=== PATIENT | male | born 1995 ===

== ENCOUNTER 2020-10-18 20:14 | Emergency (ER) | payer OTHER, SELFPAY ==
[2020-10-18 20:21] VITALS: BP 131/70; PULSE 75; RESP 16; TEMP 37.1; O2SAT 99; BMI 25.8
--- NOTE | 2020-10-18 20:49 | ED_ITS ---
HPI - Male Genitourinary General Chief complaint: Urogenital-Male Stated complaint: Personal Time Seen by Provider: 10/18/20 20:38 Source: patient Mode of arrival: ambulatory Limitations: no limitations History of Present Illness HPI Narrative: Patient comes emergency room complaining of dysuria for 2 weeks and penile discharge. Patient states that his girlfriend has similar symptoms and is here to be treated as well. Patient denies fever, no flank pain, no abdominal pain, no testicular pain. Related Data Allergies Allergy/AdvReac Type Severity Reaction Status Date / Time No Known Allergies Allergy Verified 10/18/20 20:26 Review of Systems Review of Systems: Constitutional : No Weight loss, No Fever, No Chills, No Night Sweats, No Fatigue, No Malaise ENT/Mouth : No Hearing loss, No Ear Pain, No Nasal Congestion, No Sinus Pain, No Hoarseness, No sore throat, No Rhinorrhea, No Swallowing Difficulty Eyes: No Eye Pain, No Swelling, No Redness, No Foreign Body, No Discharge, No Vision Changes Cardiovascular : No Chest Pain, No SOB, No Dyspnea on Exertion, No Orthopnea, No Edema, No Palpitations Respiratory : No Cough, No Sputum, No Wheezing, No Smoke Exposure, No Dyspnea Gastrointestinal : No Nausea, No Vomiting, No Diarrhea, No Constipation, No a bdominal Pain, No Hematochezia, No Melena Genitourinary : Complaining of dysuria, no hematuria, penile discharge Musculoskeletal : No joint pain, No Myalgias, No Joint Swelling Skin : No Skin Lesions, No rash Neuro : No Weakness, No Numbness, No Paresthesias, No Loss of Consciousness, No Dizziness, No Headache Psych : No Anxiety/Panic, No Depression, No SI/HI/AH/VH, No Social Issues, Heme/Lymph: No Bruising, No Bleeding,No Lymphadenopathy Endocrine : No Polyuria, No Polydipsia, No Temperature Intolerance PMFSH Past Medical History Medical History No known health problems Social History Social History Advance Directives: No Advance Directives Information Provided: No Physical Exam Vital Signs: Vital Signs: Last Vital Signs Temp 98.7 F 10/18/20 20:21 Pulse 75 10/18/20 20:21 Resp 16 10/18/20 20:21 BP 131/70 10/18/20 20:21 Pulse Ox 99 10/18/20 20:21 Body Mass Index 25.8 Appearance: Alert. Oriented X3. No acute distress. Eyes: Pupils equal, round and reactive to light. ENT: Pharynx normal. Neck: Normal inspection. Neck supple. No lymph nodes noted. No crepitus CVS: Normal heart rate and rhythm. Pulses normal. Normal S1 and S2 Respiratory: No respiratory distress. Breath sounds normal. No Wheezing. No rales Abdomen: Soft and nontender. No rigidity. No distention. good BS x4 : declined Skin: Skin warm and dry. Normal skin color. Normal skin turgor. Extremities: No lower extremity edema. No lower extremity edema. No Lacer ations. No Rash Neuro: Oriented X 3. No motor deficit. No sensory deficit. Moving all extermities. No slurred speech. Course Course Course Narrative: Patient urine was obtained, GC chlamydia testing pending and urinalysis. Id iscussed with the patient that he will be treated empirically for STDs. Patient agrees with plan Discharge Plan Discharge Clinical Impression: Concern about STD in male without diagnosis Patient Disposition: Home, Self-Care Instructions: Sexually Transmitted Diseases (ED) Additional Instructions: Please follow-up with your primary care physician tomorrow. If you have any worsening or new symptoms, please return to the emergency room or call 911
[2020-10-18 20:54] LABS: Glucose Urine UA NEG (NEG); Leukocyte Esterase Urine NEG (NEG); Nitrite Urine NEG (NEG); Urine Blood NEG (NEG); Urine Ketones NEG (NEG); Urine Protein TRACE MG/DL (NEG-TRACE)
[2020-10-18 20:55] LABS: Appearance Urine CLEAR; Color Urine YELLOW
[2020-10-18 21:02] LABS: Bacteria Urine 1+ /LPF; RBC Urine 0 /HPF (0); WBC Urine 0 /HPF (0-4)
[2020-10-18] MEDS: cefTRIAXone sodium 250 MG VIAL IM (21:11)
[2020-10-18] MEDS: Azithromycin 500 MG TABLET 1000 MG PO (21:12)
[2020-10-21 12:36] LABS: C. trachomatis RNA TMA NOT DETECTED; N. gonorrhoeae RNA TMA NOT DETECTED
== END 2020-10-18 21:51 | disposition home or self-care (01) ==
PROVIDERS: Emergency Provider Emergency Medicine
DX: Z20.2 Contact with and (suspected) exposure to infections with a predominantly sexual mode of transmission (principal)
CPT/HCPCS: 81001; 87491; 87591; 96372; 99284; J0696

== ENCOUNTER 2023-05-07 23:17 | Emergency (ER) | payer OTHER, SELFPAY ==
[2023-05-07 23:21] VITALS: BP 121/68; PULSE 99; RESP 12; TEMP 36.7; O2SAT 100; BMI 25.8
--- NOTE | 2023-05-08 02:50 | ED.GENADULT ---
HPI - General Adult General Chief complaint: General Medical Stated complaint: STD Check Time Seen by Provider: 05/08/23 02:49 Source: patient Mode of arrival: ambulatory Limitations: no limitations History of Present Illness HPI narrative: 27-year-old male who presents emergency department for evaluation of possible STD. Patient states over the last 1.5 weeks he has had burning with urination, urinary frequency, clear penile discharge. The patient is here with his girlfriend who also has symptoms consistent with STD/PID. The patient denied fever, chills, nausea, vomiting, abdominal pain, he has not noted any lesions on his penis. He denies testicular or scrotal pain/swelling. Related Data Previous Rx's Medication Instructions Recorded doxycycline hyclate 100 mg tablet 100 mg PO Q12H 10 days #20 tabs 05/08/23 Allergies Allergy/AdvReac Type Severity Reaction Status Date / Time No Known Allergies Allergy Verified 10/18/20 20:26 Review of Systems Review of Systems: Yes all other systems are reviewed and are negative [facility] Past Medical History [facility] Narrative: Past medical history: None. Social history: He he does smoke cigarettes. He occasionally drinks alcohol. He smokes marijuana. Medical History No known health problems Social History Social History Alcohol intake: never Advance Directives: No Advance Directives Information Provided: Yes Physical Exam ED Vital Signs: Vital Signs - 24 hr 05/07/23 23:21 Temperature 98.0 F Pulse Rate 99 Respiratory Rate 12 Blood Pressure 121/68 Pulse Oximetry 100 BMI result Body Mass Index 25.8 Vital signs stable General: Awake, alert, male patient, pleasant, cooperative in no distress HEENT: Head is normal cephalic and atraumatic, pupils were equal round reactive light, sclera contact however normal, mouth revealed moist membranes with no erythema or exudate Neck: Supple, no adenopathy Lungs: Clear to auscultation breath sounds symmetric bilaterally Heart: Regular rate rhythm, normal S1-S2 no murmurs rubs gallops Abdomen: Soft, nontender, nondistended, normoactive bowel sounds : Patient has an uncircumcised male penis, there are no lesions noted on the penile shaft or on the ball but the penis. The patient does have a clear watery discharge. Patient's testicles are nontender, scrotum appears to be normal. Back: No CVA tenderness Neuro: Nonfocal Medications Administered Discontinued Medications Generic Name Dose Route Start Last Admin Trade Name Ryan PRN Reason Stop Dose Admin Ceftriaxone Sodium 500 mg/ 0 mg 05/08/23 03:21 05/08/23 03:55 Lidocaine HCl 1 ml IM 05/08/23 03:22 500 kit ONCE ONE Administration Doxycycline Monohydrate 100 mg 05/08/23 03:21 05/08/23 03:57 Doxycycline Monohydrate 100 Mg Capsule PO 05/08/23 03:22 100 mg ONCE ONE Administration Metronidazole 2,000 mg 05/08/23 03:21 05/08/23 03:56 Metronidazole 500 Mg Tablet PO 05/08/23 03:22 2,000 mg ONCE ONE Administration Medical Decision Making Medical Decision Making [facility] Narrative: 27-year-old male who presents emergency department for evaluation of possible STD with symptoms include burning with urination, frequency, clear discharge. Patient's exam did reveal a clear penile discharge otherwise was unremarkable. Patient was treated with the following medications: Ceftriaxone 500 mg/1% lidocaine IM for gonorrhea Flagyl (metronidazole) 2 g orally for Trichomonas Doxycycline 100 mg q.12 hours for 10 days to treat chlamydia. Patient's urine was sent for GC and chlamydia I recommended that he get tested for HIV disease and syphilis however he refused this testing at this time. He was given printed and verbal instructions and discharged home Differential Diagnosis Differential diagnosis includes but is not limited to gonorrhea, chlamydia, Trichomonas, nonspecific urethritis Discharge Plan Discharge Clinical Impression: Sexually transmitted disease (STD) Patient Disposition: Home, Self-Care Instructions: Sexually Transmitted Diseases (ED) Additional Instructions: You received ceftriaxone 500 mg IM-this treats gonorrhea. You were treated for Trichomonas with Flagyl (metronidazole) 2 g orally. Take Doxycycline 100 mg every 12 hours times 10 days-this treats chlamydia. Complete the full course of antibiotics even if your gonorrhea and chlamydia results are negative. Take ibuprofen 200 mg pills, 2 pills every 6 hours as needed for pain or fever. Take Tylenol (acetaminophen) 500 mg pills, 2 pills every 6 hours as needed for pain or fever. You should follow-up with your primary care doctor and get tested for HIV disease and syphilis, these are two sexually transmitted diseases that can be asymptomatic and can be life-threatening if not treated. Follow-up with your doctor in 2 days. Please return to the emergency department if your symptoms get worse or if you develop any symptoms that are concerning to you. Prescriptions: New doxycycline hyclate 100 mg tablet 100 mg PO Q12H 10 Days Qty: 20 0RF Interventions: ED Discharge Assessment Last Done: 05/08/23 04:06 Discharge Date/Time: 05/08/23 04:06
== END 2023-05-08 04:06 | disposition home or self-care (01) ==
PROVIDERS: Emergency Provider Emergency Medicine Emergency Medical Services
DX: A64 Unspecified sexually transmitted disease (principal); R30.0 Dysuria; R35.0 Frequency of micturition
CPT/HCPCS: 0353U; 96372; 99282; 99284; J0696